=== PATIENT | female | born 1970 | race Caucasian/White ===

== ENCOUNTER → 2016-12-10 | Outpatient (CLI) | payer OTHER ==
[~2016-12-10] MED LIST: BACL10TA PO; CELE1CAP30 PO; CHOL100010 PO; DULO60CA44 PO; HYDR-600 PO; IRON PO; MAGN400T6 PO; PREG100C PO; PROP40TA5 PO
[2016-12-10 14:29] LABS: BASO % 0.4 %; BASO ABS # 0.03 K/uL (0-0.2); COMPLETE YES; EOS % 2.1 %; HEMATOCRIT 39.8 % (37-47); IG% 0.4 %; LYMPH % 25.2 %; MEAN CELL VOLUME 85.8 fL (80-100); MEAN CORPUSCULAR HEMOGLOBIN 28.9 pg (25-34); MEAN CORPUSCULAR HGB CONC 33.7 g/dl (32-36); MONO % 8.8 %; NEUT % 63.1 %; PLATELET COUNT 226 K/uL (130-400); RED BLOOD COUNT 4.64 M/uL (4.2-5.4); WHITE BLOOD COUNT 6.74 K/uL (4.8-10.8)
[2016-12-10 14:49] LABS: ALT/SGPT 24 U/L (12-78); AST/SGOT 8 U/L (15-37); BLOOD UREA NITROGEN 18 mg/dl (7-18); BUN/CREATININE RATIO 23.7 (10-20); CALCIUM 9.1 mg/dl (8.5-10.1); CARBON DIOXIDE 27 mmol/L (21-32); CHLORIDE 103 mmol/L (98-107); CHOLESTEROL 203 mg/dl (0-200); CREATININE 0.77 mg/dl (0.60-1.20); GLUCOSE 89 mg/dl (70-99); POTASSIUM 4.3 mmol/L (3.5-5.1); SODIUM 140 mmol/L (136-145); TRIGLYCERIDES 171 mg/dl (0-150); VERY LOW DENSITY LIPOPROT CALC 34 mg/dl
[2016-12-10 14:55] LABS: ALB/GLOB RATIO 1.2 (0.9-2); ALKALINE PHOSPHATASE 82 U/L (45-117); CHOLESTEROL/HDL RATIO 3.8; FERRITIN 48.7 ng/ml (8.0-388.0); HDL CHOLESTEROL 54 mg/dl; LDL CHOLESTEROL CALCULATED 115 mg/dl; TOTAL IRON BINDING CAPACITY 356 mcg/dl (250-450)
== END | disposition home or self-care (01) ==
LOC: C.LABBC 11:33
PROVIDERS: ATTEND Family Medicine
DX: I10 Essential (primary) hypertension (principal); E78.5 Hyperlipidemia, unspecified; D50.9 Iron deficiency anemia, unspecified; E55.9 Vitamin D deficiency, unspecified

== ENCOUNTER 2019-05-27 14:36 | Observation (INO) ==
[2019-05-27] MEDS ORDERED: MoRPHine SULFATE 4 MG/ML 1 ML CARP\\VIAL IV STA (15:41)
[2019-05-27] MEDS ORDERED: ONDANSETRON INJ 2 MG/ML 2 ML VIAL IV STA (15:41)
--- NOTE | 2019-05-27 15:44 | Emergency Department Note ---
History of Present Illness General Chief complaint: Sore Throat Stated complaint: SORE THROAT, EAR PAIN (BOTH) Time Seen by Provider: 05/27/19 15:30 History of Present Illness Maximum Pain Intensity: 10 This is a 49-year-old female that presents to the emergency department via private vehicle accompanied by daughter with complaints of sore throat, ear pain". The patient states that May 20 she began with a sore throat and then was evaluated at [facility] and had a throat swab that was negative for strep, gonorrhea and syphilis per patient. She states that it was thought to the yeast and she was put on nystatin 4 times daily. She has been using this with worsening symptoms. She notes trouble swallowing secondary to pain and feeling the throat is swollen shut. She has associated fevers and chills. She states that she has not been able to eat or drink since May 20. She also has headache, sinus congestion, ear pain and some burning in the chest. Home Medications Home Medications Medication Instructions Recorded Confirmed Type lisinopril 20 1 tab PO BID #180 tab 05/05/19 05/27/19 Rx mg-hydrochlorothiazide 25 mg tablet baclofen 10 mg tablet 10 mg PO Q6H tab 05/27/19 05/27/19 History ferrous sulfate 325 mg (65 mg 325 mg PO DAILY tab 05/27/19 05/27/19 History iron) tablet gabapentin 300 mg capsule 300 mg PO TID cap 05/27/19 05/27/19 History meloxicam 15 mg tablet 15 mg PO DAILY PRN #15 tab 05/27/19 05/27/19 History oxycodone 10 mg tablet 10 mg PO Q6H PRN tab 05/27/19 05/27/19 History Allergies Allergy/AdvReac Type Severity Reaction Status Date / Time erythromycin base Allergy Unknown ANAPHYLAXIS Verified 05/27/19 15:55 Past Med/Surg History Medical History H/O: hysterectomy Surgical History H/O section H/O tubal ligation Hx of dilation and curettage S/P lumbar fusion Family History Father Myocardial infarction age 68 Hyperlipidemia Sister Cervical cancer Mother Gout Rheumatoid arthritis Family/Other Hypertension Progressive muscular dystrophy Social History Preferred Language: Bruneian Communication Ability: Effective Visual Impairment: No Limitations Hearing Ability: Normal Pmo Project Manager Required: No marital status: Single Current Living Situation: Family current occupational status: disabled Feels Safe at Home: Yes Safety Concerns: Feels Safe At This Time Smoking Status: Never smoker Do You Dip or Chew Tobacco: No Hx Alcohol Use: Yes Alcohol Intake Frequency: Rarely Hx Substance Use: No Physical Activity Frequency: 3-4 Times per Week Physical Activity Frequency Comment: walking on treadmill Review of Systems A total of 10 systems reviewed and were otherwise negative Physical Exam Vital Signs Vital Signs - 24 hr 05/27/19 14:41 05/27/19 17:58 05/27/19 19:02 Temperature 36.4 C L Temperature Source Oral Sepsis Recent Fever Within 48 Hours No Sepsis Action Taken by Nursing No Action Required Pulse Rate 130 H Pulse Rate [Finger] 116 H 114 H Respiratory Rate 20 17 17 Respiratory Effort / Characteristics Non-Labored Respiratory Depth Normal Blood Pressure 114/77 Blood Pressure [Right Arm] 127/83 Blood Pressure Mean 89 Blood Pressure Mean [Right Arm] 97 Pulse Oximetry 98 98 98 Oxygen Delivery Method Room Air Room Air Room Air 05/27/19 20:40 Temperature Temperature Source Sepsis Recent Fever Within 48 Hours Sepsis Action Taken by Nursing Pulse Rate Pulse Rate [Finger] Respiratory Rate Respiratory Effort / Characteristics Respiratory Depth Blood Pressure Blood Pressure [Right Arm] Blood Pressure Mean Blood Pressure Mean [Right Arm] Pulse Oximetry Oxygen Delivery Method Room Air VITAL SIGNS - Vital signs and nursing notes were reviewed. Tachycardic, otherwise stable. GENERAL - 49-year-old female appearing her stated age who is in no acute distress but appears ill. Communicates well with provider and answers questions appropriately. SKIN - Without rashes. No meningeal or petechial rash. HEAD - NC/AT. EYES - PERRL with EOMI bilaterally. Sclera anicteric. Palpebral conjunctiva pink and moist with no injection noted. EARS - No deformities of external structures noted on gross examination bilaterally. Bilateral serous otitis media without perforation. No evidence of infection. NOSE - Midline and without cyanosis. No epistaxis or purulent drainage noted. Septum midline without deviation or septal hematoma noted. MOUTH/OROPHARYNX - Without perioral cyanosis. Buccal mucosa pink and moist and without leukoplakia. Tongue midline with equal elevation of palate bilaterally. There is bilateral 3+ tonsillar hypertrophy with whitish-yellow exudate that extends to the posterior pharynx. NECK - Neck with FROM. Supple to palpation. Cervical lymphadenopathy noted. No nuchal rigidity. LUNGS - Chest wall symmetric without accessory muscle use, intercostals retractions, or central cyanosis. Normal vesicular breath sounds CTA B/L. No wheezes, rales, or rhonchi appreciated. CARDIAC - RRR with S1/S2. No murmur, rubs, or gallops appreciated. ABDOMEN - Abdominal contour normal without pulsations or visible masses. BS normoactive all four quadrants. No tenderness, palpable masses, hepatosplenomegaly, or ascites noted. EXTREMITIES - No clubbing or peripheral cyanosis. No pretibial edema present. +5/5 strength noted in UE/LE bilaterally. NEUROLOGIC - Cranial nerves II through XII grossly intact. PSYCH - A&Ox3 and cooperates fully with examiner. Pt is very pleasant and interacts well with examiner. Course Administered Medications Baclofen (Lioresal) 10 mg PO Q6H JAYLAN Stop: 06/26/19 21:59 Last Admin: 05/27/19 22:53 Dose: 10 mg Documented by: [id number] Enoxaparin Sodium (Lovenox) 40 mg SQ Q24H JAYLAN Stop: 06/26/19 21:59 Last Admin: 05/27/19 22:53 Dose: 40 mg Documented by: [id number] Gabapentin (Neurontin) 300 mg PO TID JAYLAN Stop: 06/26/19 21:59 Last Admin: 05/27/19 22:54 Dose: 300 mg Documented by: [id number] Lisinopril/HCTZ (Prinzide 20/25mg) 1 tab PO BID JAYLAN Stop: 06/26/19 21:59 Last Admin: 05/27/19 22:54 Dose: 1 tab Documented by: [id number] Potassium Chloride/Sodium Chloride (Normal Saline W/20 Meq Kcl) 20 meq in 1,000 mls @ 125 mls/hr IV .Q8H JAYLAN Stop: 06/26/19 21:59 Last Admin: 05/27/19 22:53 Dose: 125 mls/hr Documented by: [id number] Ioversol (Optiray 320 100ml) 94 ml IV ONCE PRN PRN Reason: Interaction Checking Stop: 05/31/19 17:35 Last Admin: 05/27/19 17:38 Dose: 94 ml Documented by: [id number] Oxycodone HCl (Roxicodone Immediate Rel) 10 mg PO Q6H PRN PRN Reason: Pain Stop: 06/10/19 21:39 Last Admin: 05/27/19 22:51 Dose: 10 mg Documented by: [id number] Penicillin V Potassium (Penicillin Vk) 500 mg PO Q12@0800,2000 JAYLAN Stop: 06/06/19 22:59 Last Admin: 05/27/19 22:52 Dose: 500 mg Documented by: [id number] Discontinued Medications Sodium Chloride (Nss 1000ml) 1,000 mls @ 999 mls/hr IV .Q1H1M JAYLAN Stop: 05/27/19 16:45 Last Infusion: 05/27/19 17:40 Dose: 0 mls/hr Documented by: [id number] Admin: 05/27/19 16:12 Dose: 999 mls/hr Documented by: [id number] Sodium Chloride (Nss 1000ml) 1,000 mls @ 999 mls/hr IV .Q1H1M JAYLAN Stop: 05/27/19 18:15 Last Infusion: 05/27/19 18:48 Dose: 0 mls/hr Documented by: [id number] Admin: 05/27/19 17:40 Dose: 999 mls/hr Documented by: [id number] Sodium Chloride (Nss 1000ml) 500 mls @ 999 mls/hr IV .Q31M ONE Stop: 05/27/19 18:49 Last Admin: 05/27/19 18:25 Dose: Not Given Documented by: [id number] Ampicillin Sodium/Sulbactam Sodium 3,000 mg/ Sodium Chloride 108 mls @ 200 mls/hr IV NOW STA; Protocol Stop: 05/27/19 19:59 Last Infusion: 05/27/19 20:42 Dose: 0 mls/hr Documented by: [id number] Admin: 05/27/19 20:00 Dose: 200 mls/hr Documented by: [id number] Methylprednisolone 125 mg/ (Syringe) 2 mls @ 1.5 mls/min IV NOW STA Stop: 05/27/19 21:53 Last Admin: 05/27/19 22:53 Dose: 1.5 mls/min Documented by: [id number] Morphine Sulfate (Morphine Sulfate) 4 mg IV NOW STA Stop: 05/27/19 15:42 Last Admin: 05/27/19 16:12 Dose: 4 mg Documented by: [id number] Ondansetron HCl (Zofran) 4 mg IV NOW STA Stop: 05/27/19 15:42 Last Admin: 05/27/19 16:12 Dose: 4 mg Documented by: [id number] Medical Decision Making Laboratory Data Result diagrams: 05/27/19 16:03 05/27/19 16:03 Lab Results 05/27/19 05/27/19 05/27/19 Range/Units 16:03 16:03 16:03 WBC 8.08 (4.8-10.8) K/uL RBC 4.70 (4.2-5.4) M/uL Hgb 14.2 (12.0-16.0) g/dL Hct 40.3 (37-47) % MCV 85.7 (80-100) fL MCH 30.2 (25-34) pg MCHC 35.2 (32-36) g/dL RDW Std Deviation 41.5 (36.4-46.3) fL RDW Coeff of Josefa 13.1 (11.5-14.5) % Plt Count 249 (130-400) K/uL MPV 10.2 (7.4-10.4) fL Immature Gran % (Auto) 0.6 % Neut % (Auto) 79.4 % Lymph % (Auto) 6.7 % Crenshaw % (Auto) 12.4 % Eos % (Auto) 0.7 % Baso % (Auto) 0.2 % Immature Gran # (Auto) 0.05 H (0.00-0.02) K/uL Neut # (Auto) 6.41 (1.4-6.5) K/uL Lymph # (Auto) 0.54 L (1.2-3.4) K/uL Crenshaw # (Auto) 1.00 H (0.11-0.59) K/uL Eos # (Auto) 0.06 (0-0.5) K/uL Baso # (Auto) 0.02 (0-0.2) K/uL PT (9.0-12.0) Seconds INR (0.9-1.1) Sodium 130 L (136-145) mmol/L Potassium 3.3 L (3.5-5.1) mmol/L Chloride 94 L (98-107) mmol/L Carbon Dioxide 27 (21-32) mmol/L Anion Gap 9.0 (3-11) BUN 20 H (7-18) mg/dl Creatinine 1.07 (0.6-1.2) mg/dl Est Cr Clr Drug Dosing 73.8 ml/min Est GFR ( Amer) 71.6 Est GFR (Non-Af Amer) 61.8 BUN/Creatinine Ratio 19.0 (10-20) Glucose 103 H (70-99) mg/dl Calcium 9.0 (8.5-10.1) mg/dl Magnesium 2.2 (1.8-2.4) mg/dl Total Bilirubin 0.3 (0.2-1) mg/dl AST 11 L (15-37) U/L ALT 20 (12-78) U/L Alkaline Phosphatase 100 (45-117) U/L Troponin I < 0.015 (0-0.045) ng/ml Total Protein 8.3 H (6.4-8.2) gm/dl Albumin 3.4 (3.4-5.0) gm/dl Globulin 4.9 H (2.5-4.0) gm/dl Albumin/Globulin Ratio 0.7 L (0.9-2) TSH 1.320 (0.300-4.500) uIu/ml Lyme Disease IgG Ab Negative (Negative) Lyme Disease IgM Ab Negative (Negative) Monoscreen Negative (Negative) Influenza Type A Ag (Neg) Influenza Type B Ag (Neg) 05/27/19 05/27/19 Range/Units 16:03 16:15 WBC (4.8-10.8) K/uL RBC (4.2-5.4) M/uL Hgb (12.0-16.0) g/dL Hct (37-47) % MCV (80-100) fL MCH (25-34) pg MCHC (32-36) g/dL RDW Std Deviation (36.4-46.3) fL RDW Coeff of Josefa (11.5-14.5) % Plt Count (130-400) K/uL MPV (7.4-10.4) fL Immature Gran % (Auto) % Neut % (Auto) % Lymph % (Auto) % Crenshaw % (Auto) % Eos % (Auto) % Baso % (Auto) % Immature Gran # (Auto) (0.00-0.02) K/uL Neut # (Auto) (1.4-6.5) K/uL Lymph # (Auto) (1.2-3.4) K/uL Crenshaw # (Auto) (0.11-0.59) K/uL Eos # (Auto) (0-0.5) K/uL Baso # (Auto) (0-0.2) K/uL PT 10.5 (9.0-12.0) Seconds INR 1.0 (0.9-1.1) Sodium (136-145) mmol/L Potassium (3.5-5.1) mmol/L Chloride (98-107) mmol/L Carbon Dioxide (21-32) mmol/L Anion Gap (3-11) BUN (7-18) mg/dl Creatinine (0.6-1.2) mg/dl Est Cr Clr Drug Dosing ml/min Est GFR ( Amer) Est GFR (Non-Af Amer) BUN/Creatinine Ratio (10-20) Glucose (70-99) mg/dl Calcium (8.5-10.1) mg/dl Magnesium (1.8-2.4) mg/dl Total Bilirubin (0.2-1) mg/dl AST (15-37) U/L ALT (12-78) U/L Alkaline Phosphatase (45-117) U/L Troponin I (0-0.045) ng/ml Total Protein (6.4-8.2) gm/dl Albumin (3.4-5.0) gm/dl Globulin (2.5-4.0) gm/dl Albumin/Globulin Ratio (0.9-2) TSH (0.300-4.500) uIu/ml Lyme Disease IgG Ab (Negative) Lyme Disease IgM Ab (Negative) Monoscreen (Negative) Influenza Type A Ag Neg for Influ A (Neg) Influenza Type B Ag Neg for Influ B (Neg) Imaging Data Radiologist's Impression: XR chest 1V portable CLINICAL HISTORY: 49 years-old Female presenting with throat pain. TECHNIQUE: Portable upright AP view of the chest was obtained. COMPARISON: 01/25/2019. FINDINGS: Cardiomediastinal silhouette normal. No focal opacity. No large effusion or pneumothorax. Osseous structures normal. Upper abdomen normal. IMPRESSION: 1. No acute cardiopulmonary disease. Electronically signed by: Wili Connelly M.D. 05/27/2019 4:[address] soft tissue neck w con CLINICAL HISTORY: 49 years-old Female presenting with Throat pain, cannot eat/drink, or swallow well. TECHNIQUE: Multidetector CT of the neck was performed after the administration of intravenous contrast. IV contrast: 94 mL of Optiray 320. One or more dose lowering techniques were used consistent with the principles of ALARA (as low as reasonably achievable), including automatic exposure control, mA or kV adjustment to individual patient size, and/or use of iterative reconstruction. COMPARISON: None. CT DOSE (mGy.cm): The estimated cumulative dose is 420.27 mGy.cm. FINDINGS: Senior Actuarial Analyst topogram: Unremarkable. Limited intracranial evaluation within normal limits. Visualized portion of the orbits are normal. Visualized paranasal sinuses and mastoid air cells clear. The aerodigestive tract is narrowed at the level of the oropharynx by bilateral palantine and to a lesser extent lingual tonsillar hypertrophy. A tigroid pattern of enhancements of the tonsils is noted. The tonsils abut the uvula and mildly efface the valleculae. The hypopharynx and larynx are patent. Trachea patent in the visualized portion. No rim-enhancing fluid collection to suggest abscess at this time. Fragile fat planes are not infiltrated or displaced. No infiltration or fluid within the retropharyngeal space. Enlarged bilateral cervical lymph nodes, primarily in the bilateral level 2B and and left level 3 regions. Parotid, submandibular, and thyroid glands normal. Vasculature patent. Lung apices with minimal pleural parenchymal scarring. Minimal degenerative changes of the cervical spine. IMPRESSION: 1. Inflammatory change and hypertrophy of the palantine and lingual tonsils. This is consistent with tonsillitis likely infectious. No evidence of abscess or other complication. 2. Bilateral cervical lymphadenopathy. This is most likely reactive. This could be followed to resolution with ultrasound if there is concern. Electronically signed by: Wili Connelly M.D. 05/27/2019 5:49 PM [facility] Narrative Patient was seen and evaluated as above in room a 11b. Review was performed of nursing notes and vital signs. After obtaining a thorough history and physical examination the above work up was performed. She presents to us today with decreased p.o. intake since May 20, about 8 days ago. She does appear to be ill and is tachycardic on arrival. She is afebrile. Posterior pharynx reveals tonsillar hypertrophy with exudate without any evidence of abscess. IV access was established. She was medicated with morphine, Zofran and fluids. She was given a total of 2-1/2 L of fluid with persistent tachycardia. There is no leukocytosis or concerning anemia. There is hyponatremia, hypokalemia and evidence of dehydration with BUN at 20. Troponin is negative. Patient is status post hysterectomy therefore chance of less likely. Lyme testing, mono screen and influenza all negative. Dedicated separate throat culture is pending. EKG reveals sinus tachycardia at 113 bpm. No evidence of [place] on this exam. Decision was made to obtain a chest x-ray which was negative as well as a CT scan with contrast of the neck given the patient's presentation here today. Results of this as above. There is tonsillitis noted and no abscess. She was given IV Unasyn. I do believe that further evaluation and management in the inpatient setting is warranted noting the patient has received 2-1/2 L of saline here with minimal improvement of the tachycardia and I feel that she would benefit from care. Case discussed with the attending physician as well as the hospitalist team. Please refer to further documentation regarding her stay. GCS: 15 In the evaluation and treatment of this patient the following differential diagnoses were entertained: Strep pharyngitis, viral pharyngitis, allergic rhinitis with post nasal drip, airway obstruction, head/neck neoplasias, GERD, peritonisllar abscess, epiglottitis, qdsw-[id number]-[id number]-mouth disease, herpes simplex, mononucleosis, pneumonia, retropharyngeal abscess, scarlet fever, among others. Impression & Plan Acute tonsillitis, Inadequate oral intake, Tachycardia Discharge Plan Visit Data *Final* Discharge Date/Time: 05/27/19 21:09 Chief Complaint: Sore Throat Stated Complaint: SORE THROAT, EAR PAIN (BOTH) ED Provider: Eren Liang ED Midlevel Provider: Tim Marie Discharge Problem: Acute tonsillitis, Inadequate oral intake, Tachycardia Patient Disposition: Admitted As Inpatient Condition: Good Discharge Instructions Interventions: ED Discharge Assessment Last Done: 05/27/19 21:09
[2019-05-27] MEDS ORDERED: SODIUM CHLORIDE 0.9% 1000ML 1,000 ML IV SCH ×2 (15:45→17:15)
--- NOTE | 2019-05-27 16:11 | XRay Report ---
XR chest 1V portable CLINICAL HISTORY: 49 years-old Female presenting with throat pain. TECHNIQUE: Portable upright AP view of the chest was obtained. COMPARISON: 01/25/2019. FINDINGS: Cardiomediastinal silhouette normal. No focal opacity. No large effusion or pneumothorax. Osseous str uctures normal. Upper abdomen normal. IMPRESSION: 1. No acute cardiopulmonary disease. Electronically signed by: Wili Connelly M.D. 05/27/2019 4:10 PM
[2019-05-27 16:19] LABS: Basophils # (auto) 0.02 K/uL (0-0.2); Basophils % (auto) 0.2 %; Eosinophils # (auto) 0.06 K/uL (0-0.5); Eosinophils % (auto) 0.7 %; Hematocrit (blood only) 40.3 % (37-47); Hemoglobin 14.2 g/dL (12.0-16.0); Immature Granulocytes # (auto) 0.05 K/uL (0.00-0.02); Immature Granulocytes % (auto) 0.6 %; Lymphocytes # (auto) 0.54 K/uL (1.2-3.4); Lymphocytes % (auto) 6.7 %; Mean Corpuscular Hgb Conc 35.2 g/dL (32-36); Mean Corpuscular Volume 85.7 fL (80-100); Mean Platelet Volume 10.2 fL (7.4-10.4); Monocytes % (auto) 12.4 %; Neutrophils # (auto) 6.41 K/uL (1.4-6.5); Neutrophils % (auto) 79.4 %; Platelet Count 249 K/uL (130-400); RDW Coefficient of Variation 13.1 % (11.5-14.5); RDW Standard Deviation 41.5 fL (36.4-46.3); White Blood Count 8.08 K/uL (4.8-10.8)
[2019-05-27 16:36] LABS: Alanine Aminotransferase 20 U/L (12-78); Albumin Level 3.4 gm/dl (3.4-5.0); Aspartate Aminotransferase 11 U/L (15-37); Blood Urea Nitrogen 20 mg/dl (7-18); Carbon Dioxide 27 mmol/L (21-32); Chloride 94 mmol/L (98-107); Creatinine Clr Calc Pharmacy 73.8 ml/min; Est GFR (African American) 71.6; Est GFR (Non-African American) 61.8; Glucose 103 mg/dl (70-99); Magnesium 2.2 mg/dl (1.8-2.4); Potassium 3.3 mmol/L (3.5-5.1); Sodium 130 mmol/L (136-145)
[2019-05-27 16:47] LABS: Albumin Globulin Ratio 0.7 (0.9-2); Alkaline Phosphatase 100 U/L (45-117); Bilirubin,Total 0.3 mg/dl (0.2-1); Globulin 4.9 gm/dl (2.5-4.0); Total Protein 8.3 gm/dl (6.4-8.2); Troponin I < 0.015 ng/ml (0-0.045)
[2019-05-27 17:05] LABS: Lyme Ab IgG w/WB Rflx Negative (Negative); Lyme Ab IgM w/WB Rflx Negative (Negative)
--- NOTE | 2019-05-27 17:15 | Emergency Department Note ---
ED Visit Note I have personally seen and evaluated the patient with the physician veterinary assistant. I agree with the diagnostic/management decisions and have personally been involved in these decisions and agree with the diagnosis. The patient presents with a chief complaint of a sore throat. She has been on nystatin for this. She did have a negative strep test recently at an outside hospital. Her exam reveals exudative tonsillitis. The patient was also noted to be tachycardic on exam. She has not been eating and drinking well. CT scan is being performed to rule out abscess. .
[2019-05-27] MEDS ORDERED: IOVERSOL 100ml IV PRN (17:36)
--- NOTE | 2019-05-27 17:50 | CT Scan Report ---
CT soft tissue neck w con CLINICAL HISTORY: 49 years-old Female presenting with Throat pain, cannot eat/drink, or swallow well. TECHNIQUE: Multidetector CT of the neck was performed after the administration of intravenous contras t. IV contrast: 94 mL of Optiray 320. One or more dose lowering techniques were used consistent with the principles of ALARA (as low as reasonably achievable), including automatic exposure control, mA o r kV adjustment to individual patient size, and/or use of iterative reconstruction. COMPARISON: None. CT DOSE (mGy.cm): The estimated cumulative dose is 420.27 mGy.cm. FINDINGS: [employer]als topogram: Unremarkable. Limited intracranial evaluation within normal limits. Visualized portion of the orbits are normal. Vi sualized paranasal sinuses and mastoid air cells clear. The aerodigestive tract is narrowed at the level of the oropharynx by bilateral palantine and to a le sser extent lingual tonsillar hypertrophy. A tigroid pattern of enhancements of the tonsils is noted. The tonsils abut the uvula and mildly efface the valleculae. The hypopharynx and larynx are patent. Trachea patent in the visualized portion. No rim-enhancing fluid collection to suggest abscess at this time. Fragile fat planes are not infiltrated or displaced. No infiltration or fluid within the retropharyng eal space. Enlarged bilateral cervical lymph nodes, primarily in the bilateral level 2B and and left level 3 regions. Parotid, submandibular, and thyroid glands normal. Vasculature patent. Lung apices with minimal pleur al parenchymal scarring. Minimal degenerative changes of the cervical spine. IMPRESSION: 1. Inflammatory change and hypertrophy of the palantine and lingual tonsils. This is consistent with tonsillitis likely infectious. No evidence of abscess or other complication. 2. Bilateral cervical lymphadenopathy. This is most likely reactive. [facility] if [facility] is concern. Electronically signed by: Wili Connelly M.D. 05/27/2019 5:49 PM
[2019-05-27] MEDS ORDERED: SODIUM CHLORIDE 0.9% 1000ML 500 ML IV ONE (18:19)
[2019-05-27] MEDS ORDERED: AMPICILLIN/SULBACTAM SOD 3,000 MG in 0.9 % SODIUM CHLORIDE 100 ML IV STA (19:27)
--- NOTE | 2019-05-27 20:52 | History & Physical Report ---
Date of Service May 27, 2019 Assessment & Plan (1) Acute tonsillitis: 49-year-old female was admitted on 27 May 2019 for tonsillitis, dysphasia, dehydration, and hyponatremia. Tonsillitis, dysphasia: Progressively worsening since 04Jul. Per patient 08Jul rapid strep at OSH was negative. No improvement with nystatin. Notes 16 pound weight loss since that time due to not being able to swallow solids. Says she had tonsillitis twice recently, first in October 2018 and again December 2018. - In the ED, afebrile, tachycardic, not tachypneic, with normal BP and room SpO2. WBC 8. Influenza negative. Rapid strep negative, culture pending. EKG sinus tachy 113. pCXR without acute process. CT of the neck suggestive of acute tonsillitis without evidence of abscess. Concurrent bilateral cervical lymphadenopathy. UA and urine tests pending. - In ED, treated with morphine, Zofran, normal saline IVF, and Unasyn. - We will treat with penicillin 500 mg p.o. liquid twice daily. Given dose of Solu-Medrol to hopefully help with swelling. Tylenol IV prn for pain. Cancel led UA, kept urine testing. Hyponatremia, hypokalemia: Admit sodium 130. Admit potassium 3.3. Likely related to dehydration and poor p.o. intake. - Replace both with 0.9% NS plus KCl IVF. Recheck in a.m. Ongoing medical issues: - Low back pain: History of L3-L5 lumbar fusion in 2005. Is on Mobic and oxycodone at home. Continue here as needed. - Neuropathy: Related to back surgery. At home is on baclofen and gabapentin. Continue here. - Iron deficiency anemia: Admit Hb 14.2, MCV 85. Continue home iron. - Migraines: Apparently was started on lisinoprilhydrochlorothiazide for this. Continue here. Code status: Full code. Diet: Full liquid diet, advance as tolerated. DVT prophy: Lovenox. PT/OT: Deferred. Disbo: Admit to MedSurg for observation. (2) Dysphagia: (3) Dehydration: (4) Hyponatremia: (5) Hypokalemia: (6) Low back pain: (7) Neuropathy: (8) Iron deficiency anemia: (9) Migraines: History of Present Illness Primary Care Provider: Paul Pizano MD 49-year-old female presents complaining of 8 days of progressively worsening sore throat and difficulty swallowing. She says symptoms began on May 20 with a sore throat and bilateral ear pain. She says she is evaluated at [facility] this past Friday, May 24. Per her report, she had testing for strep, gonorrhea, and syphilis which were all negative. It does not seem that she had a throat culture performed. She was advised to try nystatin but says that this has not helped. Throughout this time her throat is felt more and more swollen such that she has not taken down any solid food for the past few days. She also says she is unable to swallow her normal pill medications. She says she said fever on and off throughout this time, worst being 101 this past Friday. Notes some nausea and occasional dry heaves. Denies any diarrhea or abdominal pain. Denies any difficulty breathing, chest pain, shortness of breath, or other acute symptoms. She does say that she has had tonsillitis twice recently, first in October 2018 and again in December 2018. - Past medical history includes low back pain, neuropathy, iron deficiency anemia, migraines. - Past surgical history includes , tubal ligation, hysterectomy, L3-5 lumbar fusion in 2005. - Social history includes denying tobacco use. Drinks alcohol about once per month. Allergies Allergy/AdvReac Type Severity Reaction Status Date / Time erythromycin base Allergy Unknown ANAPHYLAXIS Verified 05/27/19 15:55 Home Medications Home Medications Medication Instructions Recorded Confirmed Type lisinopril 20 1 tab PO BID #180 tab 05/05/19 05/27/19 Rx mg-hydrochlorothiazide 25 mg tablet baclofen 10 mg tablet 10 mg PO Q6H tab 05/27/19 05/27/19 History ferrous sulfate 325 mg (65 mg 325 mg PO DAILY tab 05/27/19 05/27/19 History iron) tablet gabapentin 300 mg capsule 300 mg PO TID cap 05/27/19 05/27/19 History meloxicam 15 mg tablet 15 mg PO DAILY PRN #15 tab 05/27/19 05/27/19 History oxycodone 10 mg PO Q6H PRN #10 tab 05/28/19 Rx penicillin V potassium 500 mg PO Q12@0800,2000 #100 ml 05/28/19 Rx prednisone 40 mg PO DAILY 3 Days #6 tab 05/28/19 Rx Past Med/Surg History Medical History H/O: hysterectomy Surgical History H/O section H/O tubal ligation Hx of dilation and curettage S/P lumbar fusion Family History Father Myocardial infarction age 68 Hyperlipidemia Sister Cervical cancer Mother Gout Rheumatoid arthritis Family/Other Hypertension Progressive muscular dystrophy Social History Preferred Language: Kiswahili Communication Ability: Effective Visual Impairment: No Limitations Hearing Ability: Normal marital status: Single Current Living Situation: Family current occupational status: disabled Feels Safe at Home: Yes Smoking Status: Never smoker Hx Alcohol Use: Yes Alcohol Intake Frequency: Rarely Hx Substance Use: No Physical Activity Frequency: 3-4 Times per Week Physical Activity Frequency Comment: walking on treadmill Review of Systems Review of Systems: Constitutional: Positive fever and chills. Feels generally weak but not focally. Eyes: Denies any visual loss or diplopia ENT: Positive sore throat, bilateral ear soreness, generalized neck soreness but not stiffness. Respiratory: Denies any dyspnea, cough, hemoptysis Cardiovascular: Denies any chest pain or feeling of edema Gastrointestinal: Denies any abdominal pain. Positive nausea and dry heaves. Denies diarrhea. Musculoskeletal: Denies any acute extremity pains, myalgias, or focal weakness Skin: Denies any known acute rashes or lesions Neuro: Positive generalized headache and difficulty with swallowing. Denies difficulty with speech. Denies acute focal weakness or numbness. Physical Exam Physical Exam: GENERAL: Awake, alert, overall appears a bit fatigued and has difficulty swallowing water. HENT: Normocephalic, atraumatic. The bilateral tonsils are enlarged, kissing, and have multiple white exudates. EYES: Normal conjunctiva. Sclera non-icteric. NECK: Positive bilateral cervical lymphadenopathy that is mildly tender. Neck itself is supple. No noted swelling or tenderness in the submental area. CARDIAC: +S1S2 regular tachycardia, no murmurs. RESPIRATORY: Clear to auscultation. No wheezes or rales. Normal respiratory effort. GI: +BS, soft, non-distended. No tenderness to palpation. No rebound or guarding. EXTREMITIES: No pedal edema or calf tenderness. Moving all extremities naturally and easily. NEURO: No gross neuro deficits. Results & Data Vital Signs (Past 12 Hours) Vital Signs Temp Pulse Pulse Resp BP BP Pulse Ox 05/27/19 19:02 114 H 17 98 05/27/19 17:58 116 H 17 127/83 98 05/27/19 14:41 36.4 C L 130 H 20 114/77 98 Laboratory Results 05/27/19 05/27/19 05/27/19 Range/Units 16:15 16:03 16:03 WBC (4.8-10.8) K/uL RBC (4.2-5.4) M/uL Hgb (12.0-16.0) g/dL Hct (37-47) % MCV (80-100) fL MCH (25-34) pg MCHC (32-36) g/dL RDW Std Deviation (36.4-46.3) fL RDW Coeff of Josefa (11.5-14.5) % Plt Count (130-400) K/uL MPV (7.4-10.4) fL Immature Gran % (Auto) % Neut % (Auto) % Lymph % (Auto) % Gosper % (Auto) % Eos % (Auto) % Baso % (Auto) % Immature Gran # (Auto) (0.00-0.02) K/uL Neut # (Auto) (1.4-6.5) K/uL Lymph # (Auto) (1.2-3.4) K/uL Gosper # (Auto) (0.11-0.59) K/uL Eos # (Auto) (0-0.5) K/uL Baso # (Auto) (0-0.2) K/uL Sodium 130 L (136-145) mmol/L Potassium 3.3 L (3.5-5.1) mmol/L Chloride 94 L (98-107) mmol/L Carbon Dioxide 27 (21-32) mmol/L Anion Gap 9.0 (3-11) BUN 20 H (7-18) mg/dl Creatinine 1.07 (0.6-1.2) mg/dl Est Cr Clr Drug Dosing 73.8 ml/min Est GFR ( Amer) 71.6 Est GFR (Non-Af Amer) 61.8 BUN/Creatinine Ratio 19.0 (10-20) Glucose 103 H (70-99) mg/dl Calcium 9.0 (8.5-10.1) mg/dl Magnesium 2.2 (1.8-2.4) mg/dl Total Bilirubin 0.3 (0.2-1) mg/dl AST 11 L (15-37) U/L ALT 20 (12-78) U/L Alkaline Phosphatase 100 (45-117) U/L Troponin I < 0.015 (0-0.045) ng/ml Total Protein 8.3 H (6.4-8.2) gm/dl Albumin 3.4 (3.4-5.0) gm/dl Globulin 4.9 H (2.5-4.0) gm/dl Albumin/Globulin Ratio 0.7 L (0.9-2) TSH 1.320 (0.300-4.500) uIu/ml Lyme Disease IgG Ab Negative (Negative) Lyme Disease IgM Ab Negative (Negative) Monoscreen Negative (Negative) Influenza Type A Ag Neg for Influ A (Neg) Influenza Type B Ag Neg for Influ B (Neg) 05/27/19 Range/Units 16:03 WBC 8.08 (4.8-10.8) K/uL RBC 4.70 (4.2-5.4) M/uL Hgb 14.2 (12.0-16.0) g/dL Hct 40.3 (37-47) % MCV 85.7 (80-100) fL MCH 30.2 (25-34) pg MCHC 35.2 (32-36) g/dL RDW Std Deviation 41.5 (36.4-46.3) fL RDW Coeff of Josefa 13.1 (11.5-14.5) % Plt Count 249 (130-400) K/uL MPV 10.2 (7.4-10.4) fL Immature Gran % (Auto) 0.6 % Neut % (Auto) 79.4 % Lymph % (Auto) 6.7 % Gosper % (Auto) 12.4 % Eos % (Auto) 0.7 % Baso % (Auto) 0.2 % Immature Gran # (Auto) 0.05 H (0.00-0.02) K/uL Neut # (Auto) 6.41 (1.4-6.5) K/uL Lymph # (Auto) 0.54 L (1.2-3.4) K/uL Gosper # (Auto) 1.00 H (0.11-0.59) K/uL Eos # (Auto) 0.06 (0-0.5) K/uL Baso # (Auto) 0.02 (0-0.2) K/uL Sodium (136-145) mmol/L Potassium (3.5-5.1) mmol/L Chloride (98-107) mmol/L Carbon Dioxide (21-32) mmol/L Anion Gap (3-11) BUN (7-18) mg/dl Creatinine (0.6-1.2) mg/dl Est Cr Clr Drug Dosing ml/min Est GFR ( Amer) Est GFR (Non-Af Amer) BUN/Creatinine Ratio (10-20) Glucose (70-99) mg/dl Calcium (8.5-10.1) mg/dl Magnesium (1.8-2.4) mg/dl Total Bilirubin (0.2-1) mg/dl AST (15-37) U/L ALT (12-78) U/L Alkaline Phosphatase (45-117) U/L Troponin I (0-0.045) ng/ml Total Protein (6.4-8.2) gm/dl Albumin (3.4-5.0) gm/dl Globulin (2.5-4.0) gm/dl Albumin/Globulin Ratio (0.9-2) TSH (0.300-4.500) uIu/ml Lyme Disease IgG Ab (Negative) Lyme Disease IgM Ab (Negative) Monoscreen (Negative) Influenza Type A Ag (Neg) Influenza Type B Ag (Neg) Medications Administered Ioversol (Optiray 320 100ml) 94 ml IV ONCE PRN PRN Reason: Interaction Checking Stop: 05/31/19 17:35 Last Admin: 05/27/19 17:38 Dose: 94 ml Documented by: [id number] Discontinued Medications Sodium Chloride (Nss 1000ml) 1,000 mls @ 999 mls/hr IV .Q1H1M JAYLAN Stop: 05/27/19 16:45 Last Infusion: 05/27/19 17:40 Dose: 0 mls/hr Documented by: [id number] Admin: 05/27/19 16:12 Dose: 999 mls/hr Documented by: [id number] Sodium Chloride (Nss 1000ml) 1,000 mls @ 999 mls/hr IV .Q1H1M JAYLAN Stop: 05/27/19 18:15 Last Infusion: 05/27/19 18:48 Dose: 0 mls/hr Documented by: [id number] Admin: 05/27/19 17:40 Dose: 999 mls/hr Documented by: [id number] Sodium Chloride (Nss 1000ml) 500 mls @ 999 mls/hr IV .Q31M ONE Stop: 05/27/19 18:49 Last Admin: 05/27/19 18:25 Dose: Not Given Documented by: [id number] Ampicillin Sodium/Sulbactam Sodium 3,000 mg/ Sodium Chloride 108 mls @ 200 mls/hr IV NOW STA; Protocol Stop: 05/27/19 19:59 Last Infusion: 05/27/19 20:42 Dose: 0 mls/hr Documented by: [id number] Admin: 05/27/19 20:00 Dose: 200 mls/hr Documented by: [id number] Morphine Sulfate (Morphine Sulfate) 4 mg IV NOW STA Stop: 05/27/19 15:42 Last Admin: 05/27/19 16:12 Dose: 4 mg Documented by: [id number] Ondansetron HCl (Zofran) 4 mg IV NOW STA Stop: 05/27/19 15:42 Last Admin: 05/27/19 16:12 Dose: 4 mg Documented by: [id number] Code Status & VTE Plan Code Status Full code VTE Prophylaxis Plan VTE Prophylaxis will be ordered: Yes Supervising Physician Co-Signing Physician Notes Attending addendum: I have physically seen this patient, have supervised the medical residents activities, and agree with the H&P unless as otherwise noted. Assessment and Plan: Acute tonsillitis/dysphagia/16 pound weight loss/dehydration/h yponatremia/hypokalemia- Patient admitted due to the inability to intake liquids or solids without choking. NPO. Placed on NSS plus KCl 20 mEq. Repeat laboratories in a.m. Place on antibiotics and steroids. Zofran 4 mg IV every 6 hours as needed. Famotidine 20 mg IV every 12 hours. Remainder of orders and notations as noted. PG Care Time/CCT Total # of Minutes Spent Total Time Spent with Patient: Total time spent is greater than 50% in coordination of care (as documented) at patient's floor/unit and/or counseling patient: Resident Activity Tracking Resident Involvement: Resident Care Provided Care Provided: Adult Hospital Medicine
[2019-05-27] MEDS ORDERED: methylPREDNISolone 125 MG/2 ML VIAL IV ONE (21:40)
[2019-05-27] MEDS ORDERED: ONDANSETRON INJ 2 MG/ML 2 ML VIAL IV PRN (21:40)
[2019-05-27] MEDS ORDERED: MELOXICAM 7.5 MG TAB PO PRN (21:40)
[2019-05-27] MEDS ORDERED: ACETAMINOPHEN 65 ML IV PRN (21:40)
[2019-05-27] MEDS ORDERED: methylPREDNISolone 125 MG in SYRINGE 0 ML IV STA (21:52)
[2019-05-27] MEDS ORDERED: ENOXAPARIN INJ 40 MG/0.4 ML SYR SQ SCH (22:00)
[2019-05-27 22:05] LABS: Prothrombin Time 10.5 Seconds (9.0-12.0)
[2019-05-27] MEDS: OXYCODONE HCL IR 5 MG TAB (IMMEDIATE RELEASE) PO PRN (22:51)
[2019-05-27] MEDS: PENICILLIN V POTASSIUM SUSP 250 MG/5 ML 200 ML PO SCH (22:52)
[2019-05-27] MEDS: NSS + 20MEQ KCL 20 MEQ/1,000 ML BAG IV SCH (22:53)
[2019-05-27] MEDS: BACLOFEN 10 MG TAB PO SCH (22:53)
[2019-05-27] MEDS: LISINOPRIL/HCTZ 20/25MG 1 TAB PO SCH (22:54)
[2019-05-27] MEDS: GABAPENTIN 300 MG CAP PO SCH (22:54)
[2019-05-28] MEDS: BACLOFEN 10 MG TAB PO SCH ×3 (03:49→15:12)
[2019-05-28] MEDS: NSS + 20MEQ KCL 20 MEQ/1,000 ML BAG IV SCH ×2 (05:24→13:35)
[2019-05-28 06:58] LABS: Basophils # (auto) 0.01 K/uL (0-0.2); Basophils % (auto) 0.2 %; Hemoglobin 13.4 g/dL (12.0-16.0); Immature Granulocytes # (auto) 0.05 K/uL (0.00-0.02); Immature Granulocytes % (auto) 0.9 %; Lymphocytes # (auto) 0.59 K/uL (1.2-3.4); Lymphocytes % (auto) 10.5 %; Mean Corpuscular Hgb Conc 34.4 g/dL (32-36); Mean Corpuscular Volume 86.9 fL (80-100); Monocytes # (auto) 0.17 K/uL (0.11-0.59); Neutrophils % (auto) 85.4 %; Platelet Count 243 K/uL (130-400); RDW Coefficient of Variation 13.3 % (11.5-14.5); RDW Standard Deviation 42.5 fL (36.4-46.3); Red Blood Count 4.49 M/uL (4.2-5.4); White Blood Count 5.62 K/uL (4.8-10.8)
[2019-05-28 07:33] LABS: BUN Creatinine Ratio 20.6 (10-20); Creatinine Clr Calc Pharmacy 131.7 ml/min; Est GFR (African American) 125.8; Est GFR (Non-African American) 108.5; Potassium 3.3 mmol/L (3.5-5.1)
[2019-05-28] MEDS: GABAPENTIN 300 MG CAP PO SCH ×2 (08:40→13:36)
[2019-05-28] MEDS: PENICILLIN V POTASSIUM SUSP 250 MG/5 ML 200 ML PO SCH (08:40)
[2019-05-28] MEDS: LISINOPRIL/HCTZ 20/25MG 1 TAB PO SCH (08:40)
[2019-05-28] MEDS: OXYCODONE HCL IR 5 MG TAB (IMMEDIATE RELEASE) PO PRN (08:43)
[2019-05-28] MEDS ORDERED: FERROUS SULFATE 325 MG TAB PO SCH (09:00)
--- NOTE | 2019-05-28 13:40 | Hospitalist Progress Note ---
Date of Service May 28, 2019 Assessment & Plan (1) Acute tonsillitis: 49-year-old female was admitted on 27 May 2019 for tonsillitis, dysphasia, dehydration, and hyponatremia. Tonsillitis, dysphasia: Progressively worsening since 04Jul. Per patient 08Jul rapid strep at OSH was negative. No improvement with nystatin. Notes 16 pound weight loss since that time due to not being able to swallow solids. Says she had tonsillitis twice recently, first in October 2018 and again December 2018. - In the ED, afebrile, tachycardic, not tachypneic, with normal BP and room SpO2. WBC 8. Influenza negative. Rapid strep negative, culture pending. EKG sinus tachy 113. pCXR without acute process. CT of the neck suggestive of acute tonsillitis without evidence of abscess. Concurrent bilateral cervical lymphadenopathy. UA and urine tests pending. - In ED, treated with morphine, Zofran, normal saline IVF, and Unasyn. -She has been started on penicillin 500 mg p.o. liquid twice daily. Given dose of Solu-Medrol she has had good improvement clinically and will likely convert continue penicillin and oral steroids for short course at time of discharge. Hyponatremia, hypokalemia: Admit sodium 130. Admit potassium 3.3. Likely related to dehydration and poor p.o. intake. - Replace both with 0.9% NS plus KCl IVF. Ongoing medical issues: - Low back pain: History of L3-L5 lumbar fusion in 2005. Is on Mobic and oxycodone at home. Continue here as needed. - Neuropathy: Related to back surgery. At home is on baclofen and gabapentin. Continue here. - Iron deficiency anemia: Admit Hb 14.2, MCV 85. Continue home iron. - Migraines: Apparently was started on lisinoprilhydrochlorothiazide for this. Continue here. Code status: Full code. Diet: Full liquid diet, advance as tolerated. DVT prophy: Lovenox. (2) Dysphagia: (3) Dehydration: (4) Hyponatremia: (5) Hypokalemia: (6) Low back pain: (7) Neuropathy: (8) Iron deficiency anemia: (9) Migraines: Subjective Patient states she is feeling much better this morning she is able to tolerate some liquid food she is considering going home later this afternoon if she continues to improve. Her biggest concern is ability to take in liquids and soft foods cultures have all been negative to date Review of Systems Review of Systems: ROS: well nourished well developed. No double vision blurry vision Continues with difficulties of swallowing but improved from admission She feels tenderness to her neck but improved from admission No palpitations, chest pain or pressure No Wheezing or breathing issues No abdominal pain nausea vomiting diarrhea changes in appetite or weight No burning urine urine frequency or changes in color No focal joint pain or muscle pain No skin rashes or oral lesions No unusual bruising or bleeding No focused back pain or numbness or loss of strength No changes in memory or confusion Physical Exam Physical Exam: The patient appeared well nourished and normally developed. Vital signs as documented. Head exam is unremarkable. normocephalic, atraumatic Oropharynx has exudative pharyngitis with grayish slough on her tonsils however tonsils are not approximating she is no drooling she is able to swallow in the room with me she does have some adenopathy about her neck her trachea is midline there is no stridor and Neck is without jugular venous distension, Lungs are clear to auscultation and percussion. Cardiac exam reveals Rhythm is regular. First and second heart sounds normal. Abdominal exam reveals normal bowel sounds, no masses, no organomegaly Extremities are nonedematous and both pedal pulses are present Neurologic exam is A&Ox3, no focal deficits, strength is equal bilateral Psychologically seems neither anxious or depressed Skin is warm Dry without bruises or lesions Results & Data Vital Signs (Past 12 Hours) Vital Signs Temp Pulse Resp BP Pulse Ox 05/28/19 07:32 36.3 C L 94 H 16 126/76 99 PG Care Time/CCT Total # of Minutes Spent Total Time Spent with Patient: Total time spent is greater than 50% in coordina tion of care (as documented) at patient's floor/unit and/or counseling patient:
--- NOTE | 2019-05-28 16:08 | Discharge Summary ---
Date of Service May 28, 2019 Admission HPI Per Admitting Provider 49-year-old female presents complaining of 8 days of progressively worsening sore throat and difficulty swallowing. She says symptoms began on May 20 with a sore throat and bilateral ear pain. She says she is evaluated at [facility] this past Friday, May 24. Per her report, she had testing for strep, gonorrhea, and syphilis which were all negative. It does not seem that she had a throat culture performed. She was advised to try nystatin but says that this has not helped. Throughout this time her throat is felt more and more swollen such that she has not taken down any solid food for the past few days. She also says she is unable to swallow her normal pill medications. She says she said fever on and off throughout this time, worst being 101 this past Friday. Notes some nausea and occasional dry heaves. Denies any diarrhea or abdominal pain. Denies any difficulty breathing, chest pain, shortness of breath, or other acute symptoms. She does say that she has had tonsillitis twice recently, first in October 2018 and again in December 2018. - Past medical history includes low back pain, neuropathy, iron deficiency anemia, migraines. - Past surgical history includes , tubal ligation, hysterectomy, L3-5 lumbar fusion in 2005. - Social history includes denying tobacco use. Drinks alcohol about once per month. Principal Diagnosis tonsitilis and swallowing difficulty Discharge Exam Physical Exam: The patient appeared well nourished and normally developed. Vital signs as documented. Head exam is unremarkable. normocephalic, atraumatic Oropharynx has exudative pharyngitis with grayish slough on her tonsils however tonsils are not approximating she is no drooling she is able to swallow in the room with me she does have some adenopathy about her neck her trachea is midline there is no stridor and Neck is without jugular venous distension, Lungs are clear to auscultation and percussion. Cardiac exam reveals Rhythm is regular. First and second heart sounds normal. Abdominal exam reveals normal bowel sounds, no masses, no organomegaly Extremities are nonedematous and both pedal pulses are present Neurologic exam is A&Ox3, no focal deficits, strength is equal bilateral Psychologically seems neither anxious or depresse Discharge Data Allergies Allergy/AdvReac Type Severity Reaction Status Date / Time erythromycin base Allergy Unknown ANAPHYLAXIS Verified 05/27/19 15:55 Consultations 05/27/19 19:29 ED Decision to Admit Stat Ordered Studies 05/27/19 17:00 CT soft tissue neck w con Stat Hospital Course (1) Acute tonsillitis: 49-year-old female was admitted on 27 May 2019 for tonsillitis, dysphasia, dehydration, and hyponatremia. Tonsillitis, dysphasia: Progressively worsening since 04Jul. Per patient 08Jul rapid strep at OSH was negative. No improvement with nystatin. Notes 16 pound weight loss since that time due to not being able to swallow solids. Says she had tonsillitis twice recently, first in October 2018 and again December 2018. - In the ED, afebrile, tachycardic, not tachypneic, with normal BP and room SpO2. WBC 8. Influenza negative. Rapid strep negative, culture pending. EKG sinus tachy 113. pCXR without acute process. CT of the neck suggestive of acute tonsillitis without evidence of abscess. Concurrent bilateral cervical lymphadenopathy. UA and urine tests pending. - In ED, treated with morphine, Zofran, normal saline IVF, and Unasyn. -She has been started on penicillin 500 mg p.o. liquid twice daily. Given dose of Solu-Medrol she has had good improvement clinically and will likely convert continue penicillin and oral steroids for short course at time of discharge. Hyponatremia, hypokalemia: Admit sodium 130. Admit potassium 3.3. Likely related to dehydration and poor p.o. intake. - Replaced both with 0.9% NS plus KCl IVF. encouraged good oral intake and hydration, recommended soft foods Ongoing medical issues: - Low back pain: History of L3-L5 lumbar fusion in 2005. Is on Mobic and oxycodone at home. Continue here as needed. - Neuropathy: Related to back surgery. At home is on baclofen and gabapentin. Continue here. - Iron deficiency anemia: Admit Hb 14.2, MCV 85. Continue home iron. - Migraines: Apparently was started on lisinoprilhydrochlorothiazide for this. Continue here. Diet: Full liquid diet, advance as tolerated. (2) Dysphagia: (3) Dehydration: (4) Hyponatremia: (5) Hypokalemia: (6) Low back pain: (7) Neuropathy: (8) Iron deficiency anemia: (9) Migraines: Total Time Total Time Spent Total Time Spent (In Minutes): greater than 30 minutes were required to prepare discharge Discharge Plan Discharge Items Patient Disposition: Home - Self-Care Reason For Visit: TONSILLITIS,DYSPHAGIA,HYPONATREMIA Discharge Diagnosis: exudative pharyngitis with airway comprimise Condition: Good Discharge Goals: Decrease discomfort and Diagnostic testing Activity: Resume your previous activity Activity Comment: off work 05/27-05/30, may return 05/31/19 no restrictions Non-emergency contact: Primary Care Provider Call non-emergency contact if: you have any medication questions Follow-up/Referrals: Paul Pizano MD [Primary Care Provider] - Diet: Regular Diet Comment: consider soft foods until Addtl Provider Instructions: off work 05/27-, may return to work 05/31/19 Prescriptions: New penicillin V potassium 250 mg/5 mL Recon Soln 500 mg PO Q12@0800,2000 Qty: 100 RF: 0 prednisone 20 mg tablet 40 mg PO DAILY 3 Days Qty: 6 RF: 0 oxycodone 10 mg tablet 10 mg PO Q6H PRN (Reason: Pain) Qty: 10 RF: 0 Continued lisinopril-hydrochlorothiazide 20-25 mg tablet 1 tab PO BID Qty: 180 RF: 3 ferrous sulfate 325 mg (65 mg iron) tablet 325 mg PO DAILY RF: 0 baclofen 10 mg tablet 10 mg PO Q6H RF: 0 gabapentin 300 mg capsule 300 mg PO TID RF: 0 meloxicam 15 mg tablet 15 mg PO DAILY PRN (Reason: Pain) Qty: 15 RF: 0 Stand-Alone Forms: [facility], Work/School Release (Inpt) Discharge Orders: Discharge Order (Routine); Ordered 05/28/19 Ordered By: Marco Antonio Lisa Admission Data Admit Date/Time: 05/27/19 20:48 Attending Provider: Marco Antonio Lisa Admit Provider: Albert Mclaughlin Primary Care Provider: Paul Pizano Other Providers: Angel Guadalupe Service: Medical
== END 2019-05-28 18:26 | disposition home or self-care (01) ==
LOC: 4E 14:36 → ED 14:36 → SUATTDRO 20:48 → 4E 21:09